=== PATIENT | female | born 1975 ===

== ENCOUNTER 2023-08-11 05:10 | Day surgery (SDC) | payer OTHER ==
[2023-08-11] MEDS ORDERED: CEFAZOLIN SODIUM 1,000 MG VIAL ONE (07:52)
[2023-08-11] MEDS ORDERED: POVIDONE-IODINE 118 ML BOTT TOP ONE (09:40)
[2023-08-11] MEDS ORDERED: CEFAZOLIN SODIUM 1,000 MG VIAL IV SCH (10:15)
[2023-08-11] MEDS ORDERED: POVIDONE-IODINE 118 ML BOTT TOP SCH (10:15)
[2023-08-11] MEDS ORDERED: ACETAMINOPHEN 500 MG GEL..CAP PO ONE ×2 (11:32→11:45)
== END 2023-08-11 13:15 | disposition home or self-care (01) ==
LOC: U 05:10 → CIR.AMB 05:10
PROVIDERS: ATTEND Obstetrics & Gynecology
DX: N84.0 Polyp of corpus uteri (principal); N93.8 Other specified abnormal uterine and vaginal bleeding